=== PATIENT | female | born 1960 | race Caucasian/White ===

== ENCOUNTER 2024-08-24 14:12 | Outpatient (RCR) | payer OTHER, SELFPAY ==
[2024-08-24] MEDS: HEPARIN 500 UNIT/5 ML SYRINGE IVF (14:30)
[2024-08-24] MEDS: SODIUM CHLORIDE 0.9 % (FLUSH) 10 ML SYRINGE IVF (14:30)
[2024-08-24 14:58] LABS: Creatinine* 0.5 mg/dL (0.5-1.5); Estimated Glomerular Filt Rate 104 ml/min
== END 2025-02-20 23:59 | disposition home or self-care (01) ==
LOC: CCIC 14:12
PROVIDERS: Visit Provider Clinical Nurse Specialist
DX: Z45.2 Encounter for adjustment and management of vascular access device (principal)
CPT/HCPCS: 36415; 36591; 82565; J1642